=== PATIENT | male | born 1980 | race Caucasian/White ===

== ENCOUNTER 2017-12-25 05:46 | Day surgery (SDC) | payer BC ==
[2017-12-25] VITALS (16 sets, daily range): BP systolic 100–136; BP diastolic 48–87
[~2017-12-25] VITALS: Ht 157.5 cm; Wt 71.0 kg
[~2017-12-25 05:46] MED LIST: FLUO20TA28 PO; OMEP40CA37 PO; OXYC30TA88 PO; famotidine 20mg tablet PO ONE; ringers solution, lacted 1,000 ML IV SCH
[2017-12-25] MEDS ORDERED: LIDOcaine 1% (10mg/ml) 2ml vial ONE (06:27)
[2017-12-25] MEDS ORDERED: triamcinolone acetonide 40mg/ml inj ONE (06:36)
[2017-12-25] MEDS ORDERED: BUPIVAcaine/PF 2.5 mg/ml (0.25%) 30ml vial ONE (06:37)
[2017-12-25] MEDS ORDERED: ROPIVAcaine 0.5% (5mg/ml) 30ml vial ONE (07:14)
[2017-12-25] MEDS ORDERED: sevoflurane 250ml liquid IH ONE (07:14)
[2017-12-25] MEDS ORDERED: cloNIDine hcl/PF 100mcg/ml inj ONE (07:14)
[2017-12-25] MEDS ORDERED: midazolam 2 mg/2 ml injection ONE ×2 (07:16→07:17)
[2017-12-25] MEDS ORDERED: LIDOcaine 2% (20mg/ml) 5ml vial ONE (07:17)
[2017-12-25] MEDS ORDERED: MIDAZolam 5mg/5ml vial ONE (07:17)
[2017-12-25] MEDS ORDERED: ondansetron/PF 4mg/2ml inj ONE (07:17)
[2017-12-25] MEDS ORDERED: dexamethasone sod phosphate 4mg/ml inj. ONE (07:17)
[2017-12-25] MEDS ORDERED: fentaNYL/PF 50MCG/1 ML 2ML syringe ONE ×3 (07:17→07:58)
[2017-12-25] MEDS ORDERED: propofol inj 20 ML IV ONE (07:17)
[2017-12-25 07:21] LABS: ISTAT ANION GAP 15 (8-12); ISTAT BUN 19 mg/dL (6-19); ISTAT CL 101 mmol/L (99-107); ISTAT CREATININE 0.9 mg/dL (0.8-1.3); ISTAT GLUCOSE 86 mg/dL (70-104); ISTAT HGB 12.6 g/dl (14.0-18.0); ISTAT Hct 37 %PCV (42-52); ISTAT IONIZED CALCIUM 1.16 mmol/L (1.03-1.32); ISTAT K 3.3 mmol/L (3.5-5.1); ISTAT NA 141 mmol/L (135-145); ISTAT TOTAL CO2 25 mmol/L (24-32); ISTAT eGFR > 90 ML/MIN; POC BUN/CREATININE RATIO 21.1 (5.4-32.0)
[2017-12-25] MEDS ORDERED: MIDAZolam 1mg/ml 10ml vial IV ONE (07:25)
[2017-12-25] MEDS ORDERED: flumazenil 0.1 mg/ml inj. IV ONE (07:52)
[2017-12-25] MEDS ORDERED: ketorolac trometh. 30mg/ml inj. ONE (07:55)
[2017-12-25] MEDS ORDERED: HYDROcodone/acetaminophen 10/325mg tab PO PRN (08:00)
[2017-12-25] MEDS ORDERED: ringers solution, lacted 1,000 ML IV SCH (08:06)
[2017-12-25] MEDS ORDERED: morphine 2 MG/ML inj. syringe IV PRN (08:10)
[2017-12-25] MEDS ORDERED: labetalol 20mg/4ml (5mg/ml) syringe IV PRN (08:10)
[2017-12-25] MEDS ORDERED: hydrALAZINE 20mg/ml inj. IV PRN (08:10)
[2017-12-25] MEDS ORDERED: fentaNYL/PF 50MCG/1 ML 2ML syringe IV PRN (08:10)
[2017-12-25] MEDS ORDERED: ondansetron/PF 4mg/2ml inj IV PRN (08:10)
== END 2017-12-25 10:25 | disposition home or self-care (01) ==
LOC: PAS 05:46
PROVIDERS: ATTEND Orthopaedic Surgery
DX: M25.661 Stiffness of right knee, not elsewhere classified (principal); K21.9 Gastro-esophageal reflux disease without esophagitis; F32.9 Major depressive disorder, single episode, unspecified; F41.9 Anxiety disorder, unspecified; Z88.8 Allergy status to other drugs, medicaments and biological substances; Z79.899 Other long term (current) drug therapy; Z96.651 Presence of right artificial knee joint; Z98.890 Other specified postprocedural states; Z72.89 Other problems related to lifestyle
CPT/HCPCS: 27570; 80047; J0735; J1100; J1885; J2001; J2250; J2270; J2405; J2704; J2795; J3010; J3301; J3490; J7120

== ENCOUNTER 2018-01-24 16:21 | Emergency (ER) | payer BC ==
[~2018-01-24] VITALS: Wt 68.2 kg
[~2018-01-24 16:21] MED LIST changes: -famotidine 20mg tablet PO ONE; -ringers solution, lacted 1,000 ML IV SCH
[2018-01-24] MEDS ORDERED: LORazepam 1 MG tablet PO ONE (17:10)
[2018-01-24 17:29] LABS: URINE AMPHETAMINE SCREEN NEGATIVE (Neg); URINE BARBITUATE SCREEN NEGATIVE (Neg); URINE BENZODIAZEPINES SCREEN NEGATIVE (Neg); URINE CANNABINOID SCREEN NEGATIVE (Neg); URINE COCAINE SCREEN NEGATIVE (Neg); URINE METHADONE SCREEN NEGATIVE (Neg); URINE OPIATE SCREEN POSITIVE (Neg); URINE PHENCYCLIDINE SCREEN NEGATIVE (Neg)
[2018-01-24] MEDS ORDERED: ondansetron 4 MG/5 ML oral solution 5ml CUP PO ONE (17:35)
[2018-01-24] MEDS ORDERED: mag hydrox/Alum hydrox/simeth 30ml oral suspension PO ONE (17:35)
[2018-01-24] MEDS ORDERED: LIDOcaine Viscous 15ml cup PO ONE (17:35)
[2018-01-24 17:36] LABS: BASOPHILS % (AUTO) 0.2 % (0-1); EOSINOPHILS % (AUTO) 0 % (0-6); HEMATOCRIT 45.7 % (42.0-52.0); HEMOGLOBIN 15.7 g/dl (14.0-17.9); LYMPHOCYTES # (AUTO) 1.1 X10'3 (1.1-4.8); MEAN CORPUSCULAR HEMOGLOBIN 26.7 PG (27.0-31.0); MEAN CORPUSCULAR HGB CONC 34.3 % (33.0-36.5); MEAN CORPUSCULAR VOLUME 77.7 FL (78-98); MEAN PLATELET VOLUME 7.6 FL (7.4-10.4); MONOCYTES % (AUTO) 10.5 % (2-12); NEUTROPHILS # (AUTO) 7.5 X10'3 (1.8-7.7); NEUTROPHILS % (AUTO) 78.3 % (42-75); PLATELET COUNT 386 X10'3 (140-440); RED BLOOD COUNT 5.88 X10'6 (4.70-6.10); RED CELL DISTRIBUTION WIDTH 15.4 % (11.5-14.5); WHITE BLOOD COUNT 9.6 X10'3 (4.5-11.0)
[2018-01-24] MEDS ORDERED: ondansetron 4mg rapidly disintigrating tab PO PRN (17:40)
[2018-01-24] MEDS ORDERED: ondansetron 4mg rapidly disintigrating tab PO ONE (17:40)
[2018-01-24 18:09] LABS: ALANINE AMINOTRANSFERASE 48 U/L (12-78); ALBUMIN 4.3 G/DL (3.4-5.0); ALBUMIN/GLOBULIN RATIO 0.9 (1.1-1.5); ALKALINE PHOSPHATASE 108 IU/L (46-116); ANION GAP 15 (8-16); ASPARTATE AMINO TRANSFERASE 22 U/L (10-37); BILIRUBIN,TOTAL 0.7 MG/DL (0.1-1.0); BLOOD UREA NITROGEN 17 MG/DL (7-18); BUN/CREATININE RATIO 15.3 (5.4-32.0); CALCIUM 10.6 MG/DL (8.5-10.1); CHLORIDE 104 MMOL/L (99-107); CREATININE 1.11 MG/DL (0.60-1.10); ETHANOL < 0.010 GM/DL (0.0-0.010); GLUCOSE 127 MG/DL (70-104); POTASSIUM 3.8 MMOL/L (3.5-5.1); SODIUM 142 MMOL/L (135-145); TOTAL PROTEIN 9.1 G/DL (6.4-8.2); eGFR 75 ML/MIN
[2018-01-24 18:22] LABS: ACETAMINOPHEN < 2.0 UG/ML (10-30)
[2018-01-24] MEDS: LORazepam 1 MG tablet PO PRN (22:06)
[2018-01-24] MEDS ORDERED: diphenhydrAMINE 25mg capsule PO ONE (22:25)
[2018-01-24] MEDS ORDERED: QUET25TA PO (22:27)
[2018-01-24 23:30] LABS: CLARITY,URINE CLEAR (Clear); COLOR,URINE AMBER (Yellow); GLUCOSE, URINE 100 mg/dl (Neg); KETONES,URINE 15 mg/dl (Neg); LEUKOCYTE ESTERASE ,URINE NEGATIVE (Neg); NITRITES, URINE NEGATIVE (Neg); OCCULT BLOOD,URINE NEGATIVE (Neg); PH,URINE 8.5 (4.8-8.0); PROTEIN,URINE 100 mg/dl (Neg); UA COLLECTION TYPE CLN CATCH MIDSTREAM
[2018-01-24 23:37] LABS: BACTERIA,URINE FEW /HPF (Neg); MUCUS STRANDS NONE SEEN /LPF (Neg); RBC,URINE NONE SEEN /HPF (0-2); SPERM FEW /HPF (NEGATIVE); SQUAMOUS EPITHELIAL CELL,UR NONE SEEN /LPF (FEW); WBC,URINE 0-4 /HPF (0-4)
[2018-01-25] MEDS: QUEtiapine 25mg tablet PO SCH ×2 (00:47→20:15)
[2018-01-25] MEDS ORDERED: LORazepam 2 mg/ml vial IV ONE ×2 (06:20→06:40)
[2018-01-25] MEDS ORDERED: LORazepam 2 mg/ml vial ONE (06:27)
[2018-01-25] MEDS ORDERED: phenobarbital sod 130mg/ml inj. IV ONE (06:40)
[2018-01-25] MEDS ORDERED: normal saline 1000ML IV soln IVB ONE (06:50)
[2018-01-25] MEDS ORDERED: PHENOBARBITAL IV ONE (07:00)
[2018-01-25] MEDS ORDERED: NORMAL SALINE IV ONE (07:00)
[2018-01-25] MEDS: LORazepam 1 MG tablet PO PRN (13:18)
[2018-01-25] MEDS: pantoprazole 40mg Tablet.DR PO SCH (13:33)
[2018-01-25] MEDS: FLUoxetine 20mg capsule PO SCH (14:24)
[2018-01-25] MEDS ORDERED: ziprasidone 20mg capsule PO ONE (15:10)
[2018-01-25] MEDS: oxyCODONE IR 5mg (immed. release) tablet PO PRN ×2 (17:03→23:02)
[2018-01-26] MEDS: oxyCODONE IR 5mg (immed. release) tablet PO PRN ×5 (03:42→21:09)
[2018-01-26] MEDS: LORazepam 1 MG tablet PO PRN ×3 (04:55→21:08)
[2018-01-26] MEDS: pantoprazole 40mg Tablet.DR PO SCH (08:05)
[2018-01-26] MEDS: FLUoxetine 20mg capsule PO SCH (08:05)
[2018-01-26] MEDS: QUEtiapine 25mg tablet PO SCH (21:10)
[2018-01-27] MEDS: oxyCODONE IR 5mg (immed. release) tablet PO PRN ×5 (03:44→20:35)
[2018-01-27] MEDS: pantoprazole 40mg Tablet.DR PO SCH (07:32)
[2018-01-27] MEDS: FLUoxetine 20mg capsule PO SCH (07:32)
[2018-01-27] MEDS: LORazepam 1 MG tablet PO PRN ×2 (07:32→16:05)
[2018-01-27] MEDS: QUEtiapine 25mg tablet PO SCH (20:34)
[2018-01-28] MEDS: oxyCODONE IR 5mg (immed. release) tablet PO PRN ×4 (01:16→17:43)
[2018-01-28] MEDS: FLUoxetine 20mg capsule PO SCH (07:52)
[2018-01-28] MEDS: pantoprazole 40mg Tablet.DR PO SCH (07:53)
[2018-01-28] MEDS: QUEtiapine 25mg tablet PO SCH (19:52)
[2018-01-29] MEDS: oxyCODONE IR 5mg (immed. release) tablet PO PRN ×3 (07:29→16:46)
[2018-01-29] MEDS: pantoprazole 40mg Tablet.DR PO SCH (07:29)
[2018-01-29] MEDS: FLUoxetine 20mg capsule PO SCH (07:29)
[2018-01-29 08:21] LABS: BASOPHILS % (AUTO) 0.2 % (0-1); EOSINOPHILS # (AUTO) 0.2 X10'3 (0-0.9); EOSINOPHILS % (AUTO) 3.9 % (0-6); HEMATOCRIT 40.8 % (42.0-52.0); HEMOGLOBIN 14.1 g/dl (14.0-17.9); LYMPHOCYTES # (AUTO) 1.1 X10'3 (1.1-4.8); LYMPHOCYTES % (AUTO) 18.2 % (21-51); MEAN CORPUSCULAR HGB CONC 34.5 % (33.0-36.5); MEAN CORPUSCULAR VOLUME 78.2 FL (78-98); MEAN PLATELET VOLUME 7.7 FL (7.4-10.4); MONOCYTES # (AUTO) 0.6 X10'3 (0-0.9); MONOCYTES % (AUTO) 10.4 % (2-12); NEUTROPHILS # (AUTO) 4.2 X10'3 (1.8-7.7); NEUTROPHILS % (AUTO) 67.3 % (42-75); PLATELET COUNT 304 X10'3 (140-440); RED BLOOD COUNT 5.22 X10'6 (4.70-6.10); RED CELL DISTRIBUTION WIDTH 15.2 % (11.5-14.5); WHITE BLOOD COUNT 6.3 X10'3 (4.5-11.0)
[2018-01-29 08:35] LABS: ALANINE AMINOTRANSFERASE 31 U/L (12-78); ALBUMIN 3.4 G/DL (3.4-5.0); ALBUMIN/GLOBULIN RATIO 0.8 (1.1-1.5); ALKALINE PHOSPHATASE 92 IU/L (46-116); ANION GAP 7 (8-16); ASPARTATE AMINO TRANSFERASE 19 U/L (10-37); BILIRUBIN,TOTAL 0.3 MG/DL (0.1-1.0); BLOOD UREA NITROGEN 12 MG/DL (7-18); BUN/CREATININE RATIO 10.3 (5.4-32.0); CALCIUM 9.2 MG/DL (8.5-10.1); CHLORIDE 101 MMOL/L (99-107); CREATININE 1.16 MG/DL (0.60-1.10); GLUCOSE 100 MG/DL (70-104); MAGNESIUM 1.6 MG/DL (1.5-2.4); POTASSIUM 4.3 MMOL/L (3.5-5.1); SODIUM 139 MMOL/L (135-145); TOTAL CARBON DIOXIDE 31.3 MMOL/L (24-32); TOTAL PROTEIN 7.6 G/DL (6.4-8.2); eGFR 72 ML/MIN
[2018-01-29] MEDS: LORazepam 1 MG tablet PO PRN ×2 (09:38→16:46)
[2018-01-29 20:45] VITALS: BP 106/69
[2018-02-11] MEDS ORDERED: HYDR-3686 PO (11:33)
[2018-02-11] MEDS ORDERED: VORT5TAB PO (11:33)
[2018-02-11] MEDS ORDERED: PANT40TA4 PO (11:33)
[2018-02-11] MEDS ORDERED: ATOR10TA PO (11:33)
[2018-02-11] MEDS ORDERED: COL100C PO (11:33)
[2018-02-11] MEDS ORDERED: QUET100T33 PO (11:33)
[2018-02-11] MEDS ORDERED: TRAZ-146 PO (11:33)
[2018-02-11] MEDS ORDERED: OXYC-658 PO (11:33)
== END 2018-01-29 20:50 ==
LOC: ER 16:21
DX: F32.9 Major depressive disorder, single episode, unspecified (principal); F41.9 Anxiety disorder, unspecified; R45.851 Suicidal ideations; R51 Headache; Z88.8 Allergy status to other drugs, medicaments and biological substances; Z79.899 Other long term (current) drug therapy; Z98.890 Other specified postprocedural states
CPT/HCPCS: 36415; 70450; 80053; 80305; 80320; 80329; 81001; 83735; 84443; 85025; 93005; 96361; 96365; 96375; 99285; J2060; J2560; J7030; Q0163

== ENCOUNTER 2020-03-08 22:29 | Inpatient (IN) | payer BC ==
[~2020-03-08] VITALS: Ht 157.5 cm; Wt 52.8 kg
[~2020-03-08 22:29] MED LIST changes: +ATOR10TA PO; +COL100C PO; -FLUO20TA28 PO; +HYDR-3686 PO; -OMEP40CA37 PO; +OXYC-658 PO; -OXYC30TA88 PO; +PANT40TA4 PO; +QUET100T33 PO; +TRAZ-256 PO; +VORT5TAB PO
[2020-03-08] MEDS ORDERED: magnesium hydroxide 30ml (MOM) UD suspension PO PRN (23:25)
[2020-03-08] MEDS ORDERED: zolpidem 5mg tablet PO PRN (23:25)
[2020-03-08] MEDS ORDERED: loperamide 2mg capsule PO PRN (23:25)
[2020-03-08] MEDS ORDERED: acetaminophen 325mg tablet PO PRN ×2 (23:25)
--- NOTE | 2020-03-08 23:45 | NUR ---
Admission Note: Pt was an admit from [facility], he arrived on the unit via wheelchair escorted by ALBINA Stfaford. Skin check and safety check completed by myself and Bala HORTON. 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 It took about 20 minutes to get patient off the bridge. He initially denied S/I, but then stated in the ER that "I cannot stop the thoughts". Per patient he is having issues because his ex- is seeing other men and starting to bring them around their two daughters and pt is having issues handling this.
[2020-03-09] MEDS ORDERED: VENL37.55 PO (00:25)
[2020-03-09] MEDS ORDERED: MELA3TAB39 PO (00:25)
[2020-03-09] MEDS: venlafaxine XR 37.5mg cap (Q24H) PO SCH (07:56)
[2020-03-09 07:59] VITALS: BP 139/87
[2020-03-09] MEDS: hydrOXYzine 25 MG tablet PO PRN ×3 (07:59→20:54)
[2020-03-09 08:02] LABS: CHOL/HDL RATIO 22.8 (0.00-4.99); CHOLESTEROL 182 MG/DL (0-200); HDL CHOLESTEROL 8 MG/DL (35-60); LDL CHOLESTEROL 176 MG/DL (50-100); TRIGLYCERIDES 112 MG/DL (20-135)
[2020-03-09] MEDS ORDERED: hydrOXYzine 25 MG tablet PO ONE (09:30)
[2020-03-09] MEDS ORDERED: LORazepam 1 MG tablet PO ONE (12:25)
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
[2020-03-09 19:16] VITALS: BP 134/88
[2020-03-09] MEDS: quetiapine 100mg tablet PO SCH (20:54)
[2020-03-09] MEDS: Melatonin 3mg tablet PO SCH (20:54)
[2020-03-09] MEDS: prazosin 1mg capsule PO SCH (20:54)
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
[2020-03-10] MEDS: venlafaxine XR 37.5mg cap (Q24H) PO SCH (07:43)
[2020-03-10 08:00] VITALS: BP 136/78
--- NOTE | 2020-03-10 08:49 | NUR ---
PSYCHOSOCIAL Guillermo is a 39 y/o male who was placed on 5150 initially by [facility] for danger to self. He had called his linecasting machine keyboard operator to say "good bye" and that he wanted to "end it". Coin Machine Service Repairer called police and Guillermo was found sitting on the ledge of [place] [address]. His account of the events were different than what the police put on the 5150 in which it took them 20 minutes to get him off the bridge. Guillermo reported he was cooperative and talked to the police for a long time but it wasn't because he would not get off the ledge. Guillermo reported he had thoughts of suicide, however, was not intending on jumping off the bridge (even if he did jump it likely would not result in ). 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 He has been unable to work due to Covid 19 and being high risk due to having sarcoidosis. 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 He identified this as a stressor to him, plus, it allows him more time on his hands and to think about his ex. Guillermo reported last Sunday he found out his ex- is seeing someone by looking at her phone. He reported he has been obsessed about it and cannot stop thinking about it. Per his report she is in a "friends with benefits" situation with one of her best friend's "baby daddy". Guillermo and his ex have been for about 2 years and had been together for almost 10 years total. They have two daughters together, ages 8 and 3. Guillermo reported he sees his daughters a few times a week. He reported he and his ex spend time together and he does things for her (mow the lawn, etc). He reported she gives him hope that they may get back together by saying, "maybe in a year". Guillermo reported they largely because of his alcohol abuse. He reported he has been sober since 06/19/2018 and feels like he has done everything expected of him. When asked, Guillermo admitted he would get back together with is ex if given the chance. Guillermo reported he would like to see a therapist and is open to taking medications again. Guillermo denied any current SI. He was tearful at times with depressed mood. He appeared tortured by his continual thoughts about his ex and her involvement with others. TON Lord Addendum: 03/10/20 at 0855 by Shell Cook SS Amended: Links added.
[2020-03-10] MEDS: hydrOXYzine 25 MG tablet PO PRN ×2 (08:54→18:59)
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
--- NOTE | 2020-03-10 15:09 | NUR ---
DISCHARGE PLANNING Met with Guillermo to discuss discharge planning. Worked with him on a safety plan. Discussed ways he can set boundaries with his ex to help him manage. Provided him with phone numbers for therapists and sat with him in the Dr's office so he could make calls to set up an appointment. He was able to set up an appointment with a therapist next week. He also scheduled a follow up appointment with his PCP for next week. He reported he was feeling much better after getting great sleep last night. He reported he feels more in control of his thoughts. He denied any current SI. He reported he feels safe to return home. TON Lord
[2020-03-10 20:31] VITALS: BP 143/89
[2020-03-10] MEDS: Melatonin 3mg tablet PO SCH (21:20)
[2020-03-10] MEDS: quetiapine 100mg tablet PO SCH (21:20)
[2020-03-10] MEDS: prazosin 1mg capsule PO SCH (21:21)
[2020-03-10] MEDS: mag hydrox/Alum hydrox/simeth 30ml oral suspension PO PRN (21:39)
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
[2020-03-11] MEDS: mag hydrox/Alum hydrox/simeth 30ml oral suspension PO PRN (07:52)
[2020-03-11] MEDS: venlafaxine XR 37.5mg cap (Q24H) PO SCH (07:52)
[2020-03-11 08:00] VITALS: BP 135/84
[2020-03-11] MEDS ORDERED: QUET100T33 PO (10:41)
[2020-03-11] MEDS ORDERED: EFF37.5XRC PO (10:41)
[2020-03-11] MEDS ORDERED: PRAZ1CAP5 PO (10:41)
[2020-03-11] MEDS ORDERED: HYDR-3686 PO (10:41)
--- NOTE | 2020-03-11 12:10 | NUR ---
DISCHARGE NOTE: Pt discharged home at 1200, ambulated off the unit accompanied by PCT. Rx's were called into [facility] on [address]. Pt expressed understanding of his discharge instructions including medications and follow up care, all belongings returned except for a missing pair of socks; automobile body repair chief notified of missing Lalo socks.
== END 2020-03-11 12:09 | disposition home or self-care (01) | DRG 885 ==
LOC: ADULT MH 22:49
PROVIDERS: ADMIT Psychiatry & Neurology Psychiatry; ATTEND Psychiatry & Neurology Psychiatry
DX: F33.1 Major depressive disorder, recurrent, moderate (principal); R45.851 Suicidal ideations; D86.9 Sarcoidosis, unspecified; E78.5 Hyperlipidemia, unspecified; F10.21 Alcohol dependence, in remission; Z71.51 Drug abuse counseling and surveillance of drug abuser; F41.1 Generalized anxiety disorder; F43.10 Post-traumatic stress disorder, unspecified; R63.3 Feeding difficulties; Z96.651 Presence of right artificial knee joint; F12.10 Cannabis abuse, uncomplicated; Z79.899 Other long term (current) drug therapy
CPT/HCPCS: 36415; 80061; 83036; 87081; Z7610